=== PATIENT | male | born 2000 | race Caucasian/White ===

== ENCOUNTER 2022-03-22 08:59 | Emergency (ER) | payer OTHER ==
[2022-03-22 09:23] VITALS: BP 121/77; PULSE 76; RESP 18; TEMP 98.3
--- NOTE | 2022-03-22 09:59 | ED ---
Psych HPI - General Chief Complaint: Psychiatric Symptoms Stated Complaint: mental health Time Seen by Provider: 03/22/22 09:16 Source: patient, RN notes reviewed Mode of arrival: ambulatory Limitations: no limitations - History of Present Illness Initial Comments: 21-year-old male presents emergency Department for evaluation for psychiatric issues. Patient states that he started having increasing depression, anxiety issues after an event last night. Patient states he has a history of cutting states he thought about cutting herself but states he had no intention. Patient does currently see a therapist was on medications in the past but does not take any current medications. Patient states police showed up at his house today stating that someone called concern for his well-being. Patient is brought here for evaluation. Patient denies any drug or alcohol use - Related Data Home Medications Medication Instructions Recorded Confirmed No Known Home Medications 03/22/22 03/22/22 Allergies Allergy/AdvReac Type Severity Reaction Status Date / Time No Known Allergies Allergy Verified 03/22/22 10:56 Review of Systems ROS Statement: Those systems with pertinent positive or pertinent negative responses have been documented in the HPI. ROS Other: All systems not noted in ROS Statement are negative. Past Medical History Past Medical History: No Reported History Past Surgical History: Orthopedic Surgery Past Psychological History: Anxiety, Depression Smoking Status: Vaper Past Alcohol Use History: Occasional Past Drug Use History: Marijuana General Exam Limitations: no limitations General appearance: alert, in no apparent distress Head exam: Present: atraumatic, normocephalic, normal inspection Eye exam: Present: normal appearance, PERRL, EOMI. Absent: scleral icterus, conjunctival injection, periorbital swelling ENT exam: Present: normal exam, normal oropharynx, mucous membranes moist Neck exam: Present: normal inspection. Absent: tenderness, meningismus, lymphadenopathy Respiratory exam: Present: normal lung sounds bilaterally. Absent: respiratory distress, wheezes, rales, rhonchi, stridor Cardiovascular Exam: Present: regular rate, normal rhythm, normal heart sounds. Absent: systolic murmur, diastolic murmur, rubs, gallop, clicks Course Vital Signs 03/22/22 09:17 Temperature 98.3 F Pulse Rate 76 Respiratory 18 Rate Blood Pressure 121/77 O2 Sat by Pulse 98 Oximetry Medical Decision Making - Lab Data Lab Results 03/22/22 Range/Units 11:15 Urine Opiates Screen Not Detected (NotDetected) Ur Oxycodone Screen Not Detected (NotDetected) Urine Methadone Screen Not Detected (NotDetected) Ur Propoxyphene Screen Not Detected (NotDetected) Ur Barbiturates Screen Not Detected (NotDetected) U Tricyclic Antidepress Not Detected (NotDetected) Ur Phencyclidine Scrn Not Detected (NotDetected) Ur Amphetamines Screen Not Detected (NotDetected) U Methamphetamines Scrn Not Detected (NotDetected) U Benzodiazepines Scrn Not Detected (NotDetected) Urine Cocaine Screen Not Detected (NotDetected) U Marijuana (THC) Screen Detected H (NotDetected) Disposition Clinical Impression: Depression, Acute anxiety Disposition: Left Against Medical Advice Referrals: Yoav Jo MD [Primary Care Provider] - 1-2 days
[2022-03-22 11:58] LABS: Amphetamine Screen,Urine Not Detected (NotDetected); Barbiturate Screen,Urine Not Detected (NotDetected); Benzodiazepines Screen,Urine Not Detected (NotDetected); Cocaine Screen,Urine Not Detected (NotDetected); Methadone Screen, Urine Not Detected (NotDetected); Opiate Screen,Urine Not Detected (NotDetected); Oxycodone Screen, Urine Not Detected (NotDetected); Phencyclidine Screen,Urine Not Detected (NotDetected); Tricyclic Antidepressant,Urine Not Detected (NotDetected); Urn Cannabinoid Scrn Detected (NotDetected)
== END 2022-03-22 16:32 | disposition left against medical advice (07) ==
LOC: EC 08:59
DX: F32.A Depression, unspecified (principal); F41.9 Anxiety disorder, unspecified; F17.290 Nicotine dependence, other tobacco product, uncomplicated; F12.90 Cannabis use, unspecified, uncomplicated
CPT/HCPCS: 80306; 82075; 99284

== ENCOUNTER 2023-02-10 15:00 | Emergency (ER) | payer OTHER ==
[2023-02-10 15:41] VITALS: RESP 18; TEMP 98.4
[2023-02-10] MEDS ORDERED: DIPH,PERTUS(ACELL)TETVAC-LF 0.5 ML VIAL IM ONE (15:55)
[2023-02-10] MEDS ORDERED: LIDOCAINE 1% INJ 10MG/ML (30 ML VIAL-PF) SQ ONE (15:55)
--- NOTE | 2023-02-10 17:21 | ED ---
General Adult HPI - General Chief complaint: Wound/Laceration Stated complaint: [facility] L thumb laceration Time Seen by Provider: 02/10/23 15:47 Source: patient, RN notes reviewed Mode of arrival: ambulatory Limitations: no limitations - History of Present Illness Initial comments: 22-year-old -[place] male with no significant past medical history pr esents the emergency department with a chief complaint of left thumb laceration. Patient reports that he was attempting to put his knife back in his pocket when he slipped and cut his left thumb. He denies any numbness, tingling, weakness to the extremity. He is unsure when his last tetanus vaccination was. Denies any anticoagulant use - Related Data Home Medications Medication Instructions Recorded Confirmed No Known Home Medications 03/22/22 03/22/22 Allergies Allergy/AdvReac Type Severity Reaction Status Date / Time No Known Allergies Allergy Verified 02/10/23 15:41 Review of Systems ROS Statement: Those systems with pertinent positive or pertinent negative responses have been documented in the HPI. ROS Other: All systems not noted in ROS Statement are negative. Past Medical History Past Medical History: No Reported History Past Surgical History: Orthopedic Surgery Past Psychological History: Anxiety, Depression Smoking Status: Vaper Past Alcohol Use History: Occasional Past Drug Use History: Marijuana General Exam Limitations: no limitations General appearance: alert, in no apparent distress Head exam: Present: atraumatic, normocephalic, normal inspection Eye exam: Present: normal appearance, PERRL, EOMI. Absent: scleral icterus, conjunctival injection, periorbital swelling ENT exam: Present: normal exam, mucous membranes moist Neck exam: Present: normal inspection. Absent: tenderness, meningismus, lymphadenopathy Respiratory exam: Present: normal lung sounds bilaterally. Absent: respiratory distress, wheezes, rales, rhonchi, stridor Cardiovascular Exam: Present: regular rate, normal rhythm, normal heart sounds. Absent: systolic murmur, diastolic murmur, rubs, gallop, clicks GI/Abdominal exam: Present: soft, normal bowel sounds. Absent: distended, tenderness, guarding, rebound, rigid Extremities exam: Present: normal inspection, full ROM, normal capillary refill. Absent: tenderness, pedal edema, joint swelling, calf tenderness Left Hand L/R Front: 1 - laceration (1 cm laceration to left thumb with mild active bleeding at this noted full range of motion 2+ radial pulses distal NVI intact) Back exam: Present: normal inspection Neurological exam: Present: alert, oriented X3, CN II-XII intact Psychiatric exam: Present: normal affect, normal mood Skin exam: Present: warm, dry, intact, normal color. Absent: rash Course Vital Signs 02/10/23 02/10/23 15:36 18:08 Temperature 98.4 F 98.4 F Pulse Rate 63 67 Respiratory 18 18 Rate Blood Pressure 113/72 120/76 O2 Sat by Pulse 100 100 Oximetry Procedures - Laceration Laceration #1 Consent Obtained: verbal consent Indication: laceration Site: other (L thumb) Size (cm): 1 Description: linear Depth: simple, single layer Anesthetic Used: lidocaine 1% Anesthesia Technique: local infiltration, nerve block Pre-repair: wound explored, irrigated extensively Type of Sutures: vicryl Size of Sutures: 5-0 Number of Sutures: 2 Complications: pain, bleeding, nerve injury Patient Tolerated Procedure: well, no complications Medical Decision Making - Medical Decision Making Was pt. sent in by a medical professional or institution (TEODORA Zavaleta, [employer], urgent care, hospital, or custodial...) When possible be specific @ -[No] Did you speak to anyone other than the patient for history (EMS, parent, family, police, friend...)? What history was obtained from this source @ -[No] Did you review nursing and triage notes (agree or disagree)? Why? @ -[I reviewed and agree with nursing and triage notes] Were old charts reviewed (outside hosp., previous admission, EMS record, old EKG, old radiological studies, urgent care reports/EKG's, custodial records)? Report findings @ -[No old charts were reviewed] Differential Diagnosis (chest pain, altered mental status, abdominal pain women, abdominal pain men, vaginal bleeding, weakness, fever, dyspnea, syncope, headache, dizziness, GI bleed, back pain, seizure, CVA, palpatations, mental health, musculoskeletal)? @ -[not applicable] EKG interpreted by me (3pts min.). @ -[As above] X-rays interpreted by me (1pt min.). @ -[None done] CT interpreted by me (1pt min.). @ -[None done] U/S interpreted by me (1pt. min.). @ -[None done] What testing was considered but not performed or refused? (CT, X-rays, U/S, labs)? Why? @ -[None] What meds were considered but not given or refused? Why? @ -[None] Did you discuss the management of the patient with other professionals (professionals i.e. , PA, [employer], lab, RT, psych nurse, case management social worker, state assessed properties director, teacher, parole hearing officer, case management social worker)? Give summary @ -[No] Was smoking cessation discussed for >3mins.? @ -[No] Was critical care preformed (if so, how long)? @ -[No] Were there social determinants of health that impacted care today? How? (Homelessness, low income, unemployed, alcoholism, drug addiction, transportation, low edu. Level, literacy, decrease access to med. care, shelter, rehab)? @ -[No] Was there de-escalation of care discussed even if they declined (Discuss DNR or withdrawal of care, Hospice)? DNR status @ -[No] What co-morbidities impacted this encounter? (DM, HTN, Smoking, COPD, CAD, Cancer, CVA, ARF, Chemo, Hep., AIDS, mental health diagnosis, sleep apnea, morbid obesity)? @ -[None] Was patient admitted / discharged? Hospital course, mention meds given and route, prescriptions, significant lab abnormalities, going to OR and other pertinent info. @ -Discharged. This is a 22 year-old male who presents to the emergency department with laceration. patient had a thorough history and physical exam performed while in the ED. Physical exam is essentially unremar kable heart rate regular rate and rhythm lungs clear to auscultation bilaterally, abdomen soft nontender. L thumb with 1cm. patient had 2 sutures placed without difficulty. . Patient was seen and evaluated by EPS to does not believe the patient meets inpatient criteria. Patient to be discharge at this time. Return precautions were discussed. Patient discharged in stable condition. Case discussed with Myesha Reynoso who agrees with plan of care Undiagnosed new problem with uncertain prognosis? @ -[No] Drug Therapy requiring intensive monitoring for toxicity (Heparin, Nitro, Insulin, Cardizem)? @ -[No] Were any procedures done? @ -[No] Diagnosis/symptom? @ -laceration to left thumb Acute, or Chronic, or Acute on Chronic? @ -acute Uncomplicated (without systemic symptoms) or Complicated (systemic symptoms)? @ -uncomplicated Side effects of treatment? @ -[No] Exacerbation, Progression, or Severe Exacerbation? @ -[No] Poses a threat to life or bodily function? How? (Chest pain, [place], [place], pneumonia, PE, COPD, DKA, ARF, appy, cholecystitis, CVA, Diverticulitis, Homicidal, Suicidal, threat to staff... and all critical care pts) @ -low likelihood Disposition Clinical Impression: Laceration Disposition: HOME SELF-CARE Condition: Stable Instructions (If sedation given, give patient instructions): Care For Your Stitches (DC), Laceration (ED) Additional Instructions: Please return to the nearest emergency department if symptoms worsen or persist Is patient prescribed a controlled substance at d/c from ED?: No Referrals: Yoav Jo MD [Primary Care Provider] - 1-2 days Time of Disposition: 18:03
[2023-02-10 18:09] VITALS: BP 120/76; PULSE 67
== END 2023-02-10 18:10 | disposition home or self-care (01) ==
LOC: EC 15:00
DX: S61.012A Laceration without foreign body of left thumb without damage to nail, initial encounter (principal); F41.9 Anxiety disorder, unspecified; F32.A Depression, unspecified; F17.290 Nicotine dependence, other tobacco product, uncomplicated; F12.90 Cannabis use, unspecified, uncomplicated; Z23 Encounter for immunization; W26.0XXA Contact with knife, initial encounter
CPT/HCPCS: 90715; 99282; 90471; 12001; J2001

== ENCOUNTER → 2023-12-29 | Outpatient (CLI) | payer OTHER ==
--- NOTE | 2023-12-30 08:55 | XR ---
EXAMINATION TYPE: XR hand complete LT, XR wrist complete LT DATE OF EXAM: 12/29/2023 4:28 PM CLINICAL INDICATION:Male, 23 years old with history of S63.502A UNSPECIFIED SPRAIN OF LEFT WRIST, INI TIAL; [facility] COMPARISON: None TECHNIQUE: XR hand complete LT, XR wrist complete LT Frontal, lateral and oblique views were obtained . FINDINGS: Normal alignment of the visualized joints. No acute osseous pathology is identified. No e vidence of soft tissue swelling. IMPRESSION: No acute osseous pathology.
== END | disposition home or self-care (01) ==
LOC: RADXRMAIN 16:01
PROVIDERS: ATTEND Emergency Medicine
DX: S63.502A Unspecified sprain of left wrist, initial encounter (principal); S63.8X2A Sprain of other part of left wrist and hand, initial encounter

== ENCOUNTER → 2024-02-29 | Outpatient (CLI) | payer OTHER ==
--- NOTE | 2024-03-04 22:25 | MR ---
EXAM: MR wrist LT wo con DATE OF EXAM: 02/29/2024 COMPARISON: Left wrist radiograph 12/29/2023 HISTORY: Left wrist pain and limited movement, work lifting injury TECHNIQUE: Multiplanar, multisequence images of the left wrist were acquired without contrast. FINDINGS: BONES/JOINTS: Normal bone marrow signal. Negative ulnar variance. Trace amount of fluid within the di stal radioulnar joint. LIGAMENTS: Scapholunate and lunotriquetral ligaments are normal. Extrinsic carpal ligaments are dallin l. Limited evaluation of the triangular fibrocartilaginous complex without the use of intra-articular contrast. However, given these limitations, there is apparent discontinuity involving the dorsal rad ioulnar ligamentous complex of the TFCC.. TENDONS: Flexor tendons are normal. Extensor tendons are normal. SOFT TISSUES: Carpal tunnel is normal. Guyon's canal is normal. No bursal distention. No fluid collec tion. NEUROVASCULAR: The median nerve is normal in size, signal, and location. The ulnar nerve is normal in size, signal, and location. Vascular structures are normal OTHER: Small amount of nonspecific edema/inflammation within the fat pad along the deep/ulnar aspect of the radial neurovascular bundle, and adjacent to the flexor carpi radialis tendon. IMPRESSION: 1. High suspicion for TFCC injury involving the dorsal radioulnar ligament, trace associated effusion in the DRUJ. Correlate with symptomatology to determine need for additional imaging in the form of w rist MRI arthrogram. 2. Negative ulnar variance. 3. Small amount of nonspecific edema/inflammation in the fat pad along the deep aspect of the radial neurovascular bundle. This could relate to contusive change and/or extrinsic ligamentous injury.
== END | disposition home or self-care (01) ==
LOC: RADMRIMAIN 17:36
PROVIDERS: ATTEND Orthopaedic Surgery Hand Surgery
DX: M25.532 Pain in left wrist (principal); R60.0 Localized edema

== ENCOUNTER 2024-03-14 07:54 | Day surgery (SDC) | payer OTHER ==
--- NOTE | 2024-03-12 19:44 | P.HPOR ---
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 He had immediate pain and swelling. He was seen at [facility] where x-rays were taken and he was placed in a thumb spica brace. He was placed in a cast last visit due to not tolerating the brace. He states he still has continued pain, swelling and some intermittent numbness and tingling along the radial aspect of the wrist. He's been off of work since the injury. He is very distraught and not able to move any of the fingers or wrist due to pain. He still describes most of his pain and symptoms are localized to the base of the thumb/ radial wrist. Physical Examination: LUE: AIN/PIN/Radial/Ulnar/Median motor intact. Radial/Ulnar/Median SILT. 2+/4 Radial/Ulnar pulses palpated. 5/5 APB, 5/5 FDI. Positive Finkelsteins, negative CMC grind, negative Durkan's compression. Swelling present over first dorsal compartment. Patient remains hypersensitive and is unable to move any of his fingers without extreme pain limiting remainder of exam. No signs of erythema, warmth or compartment syndrome. When I try to move any of the patients fingers he jolt's in pain. NTTP over ulnar soft spot. MRI: MRI of the left wrist without contrast on 02/29/24 demonstrates traumatic tear of APL off of the thumb metacarpal insertion. there is also questionable concern for possible dorsal distal radial ulnar joint ligament injury. Impression: 1.) Left hand abductor pollicis longus traumatic tendon rupture/tear. Plan: Diagnosis and treatment options were discussed with the patient. Despite being 2 months out from his injury he still remains very symptomatic, tender, and hypers ensitive over the first dorsal compartment and now the hand globally with limited movement of all digits. He is very emotionally distraught and in tears in office stating he does not have any sign of reliable income source currently since being off of work and his symptoms feel the same way and slightly worse than the day of his injury. We discussed MRI findings, if he has a complete or partial tear of his APL tendon we discussed this could be repaired however his DRUJ seems to be stable on exam although his exam is now limited due to pain. We discussed continued conservative treatment vs operative exploration with possible abductor pollicis longus tear repair. While under anesthesia we also discussed the stability of his DRUJ will be assessed. Overall we discussed his symptoms are not straightforward and he is presenting with pain that seems out of proportion to MRI findings. We will start therapy after surgical exploration depending on what is discovered and repaired. The patient was agreeable with this plan. Risks and benefits of surgery including bleeding, infection, damage to surrounding tissue, need for further surgery, residual numbness were discussed and the patient wished to go forward with surgery. He is to remain off work until his next visit. -Maico Parrish DO Orthopedic Hand/Upper Extremity Surgeon Past Medical History Past Medical History: Asthma, GERD/Reflux History of Any Multi-Drug Resistant Organisms: None Reported Past Surgical History: Orthopedic Surgery Additional Past Surgical History / Comment(s): L/R foot bone removed Past Anesthesia/Blood Transfusion Reactions: No Reported Reaction Smoking Status: Current some day smoker, Vaper - Past Family History Mother Family Medical History: No Reported History Father History Unknown: Yes Medications and Allergies Home Medications Medication Instructions Recorded Confirmed Type Ibuprofen [Motrin Ib] 200 mg PO Q8H PRN 03/08/24 03/08/24 History Allergies Allergy/AdvReac Type Severity Reaction Status Date / Time No Known Allergies Allergy Verified 03/08/24 14:29 Physical Examination Osteopathic Statement: *. No significant issues noted on an osteopathic structural exam other than those noted in the History and Physical/Consult.
[~2024-03-14 07:54] MED LIST: HYDROmorphone 0.5 MG/0.5 ML SYRINGE IVP PRN; LIDOCAINE 1% (10MG/ML) FOR IV START INTRADERMA PRN; METOCLOPRAMIDE 5 MG/ML 2 ML VIAL IVP PRN; MIDAZOLAM 2 MG/2 ML VIAL IV PRN; Pre Op ABX Message 1 EACH MISC MISCELLANE ONE; fentaNYL (PF) 50 MCG/ML 2 ML AMP IV PRN
[2024-03-14] MEDS: LACTATED RINGERS 1,000 ML IV SCH (08:50)
[2024-03-14] MEDS: ONDANSETRON 4 MG/2 ML VIAL IVP ONE (08:51)
[2024-03-14] MEDS: DEXAMETHASONE SOD PHOSPHATE 4 MG/ML 1 ML VIAL IV ONE (08:51)
[2024-03-14] MEDS ORDERED: MIDAZOLAM 2 MG/2 ML VIAL ONE (09:14)
[2024-03-14] MEDS ORDERED: KETAMINE HCL IN 0.9 % NACL 50 MG/5 ML SYRINGE ONE (09:14)
[2024-03-14] MEDS ORDERED: PROPOFOL 10 MG/ML 20 ML VIAL IV ONE (09:14)
[2024-03-14] MEDS ORDERED: KETOROLAC 15 MG/ML 1 ML VIAL ONE (09:14)
[2024-03-14] MEDS ORDERED: THROMBIN (BOVINE) 5,000 UNIT VIAL ONE (09:14)
[2024-03-14] MEDS ORDERED: fentaNYL (PF) 50 MCG/ML 2 ML AMP ONE (09:14)
[2024-03-14] MEDS ORDERED: GLYCOPYRROLATE 0.2 MG/ML 2 ML VIAL ONE (09:14)
[2024-03-14] MEDS: BUPIVACAINE (PF) 0.5% 30 ML VIAL SQ ONE ×2 (09:35→09:56)
[2024-03-14] MEDS: LIDOCAINE 2% (PF) 20 MG/ML 5 ML VIAL SQ ONE ×2 (09:36→09:56)
[2024-03-14 10:47] VITALS: TEMP 96.8
[2024-03-14 11:41] VITALS: RESP 16
[2024-03-14 12:38] VITALS: BP 131/70; PULSE 61
--- NOTE | 2024-03-14 17:45 | P.OP ---
Date of Procedure: 03/14/24 Preoperative Diagnosis: 1.) Left DeQuervains tenosynovitis Postoperative Diagnosis: 1.) Left DeQuervains tenosynovitis Procedure(s) Performed: 1.) Left first dorsal compartment release Anesthesia: AMARA Surgeon: Maico Parrish Estimated Blood Loss (ml): 0 Pathology: none sent Condition: stable Disposition: PACU Description of Procedure: This is a 23 year old male who presents today for a left first dorsal compartment release after having failed conservative treatment. Risks and b enefits of surgery were discussed with the patient including bleeding, damage to surrounding tissue, infection, need for further surgery as well as risks of anesthesia including pulmonary embolism and even and the patient wished to proceed with surgical intervention. The patients was seen in the pre-operative area by myself. Consent and H&P were completed and updated. The correct extremity was marked in the pre-operative area by myself and all other questions were answered. Operative Narrative: The patient was brought to the operating room by the department of anesthesia. They remained on the portable stretcher and a rolling hand table was brought to the side of the operative extremity. The patient was then drifted off to sleep by the department of anesthesia. A nonsterile tourniquet was then applied to the operative extremity and the left upper extremity was then prepped and draped in normal sterile fashion. Pre-operative time out was performed indic ating the correct patient, procedure and laterality. All in the room agreed. Pre-operative antibiotics were given prior to skin incision. The operative extremity was the exsanguinated with an esmarch bandage and the tourniquet was inflated to 250mmHg. 15 blade scalpel was used to make a longitudinal skin incision centered over the first dorsal compartment of the left wrist. Blunt dissection was taken down to the proximal edge of the first dorsal compartment while taking care to identify and protect branches of the superficial radial sensory nerve. The first dorsal compartment was released in its entirety from proximal to distal. APL and EPB tendons were identified and there was some minor fraying of the most volar slip of the APL tendon at it's insertion at the base of the thumb but without any obvious tear or rupture of the tendon. Skin closure was performed with 4-0 Monocryl suture and steri strips. A 50:50 mixture of 1% Lidocaine and 0.5% bupivacaine was injected into the subcutaneous tissues of the radial wrist skin, 10ccs total. Sterile soft dressing was applied consisting of 4x4's cast padding and an pal wrap. The patient was then woken by the department of anesthesia and transferred to PACU in stable condition. Maico Parrish D.O. Orthopedic Hand/Upper Extremity Surgeon
== END 2024-03-14 12:12 | disposition home or self-care (01) ==
LOC: OR 07:54
PROVIDERS: ATTEND Orthopaedic Surgery Hand Surgery
DX: M65.4 Radial styloid tenosynovitis [de Quervain] (principal); K21.9 Gastro-esophageal reflux disease without esophagitis; J45.909 Unspecified asthma, uncomplicated; F17.200 Nicotine dependence, unspecified, uncomplicated; Z79.899 Other long term (current) drug therapy
CPT/HCPCS: 25000; J2250; J1100; J2405; J3010; J1885; J2704; J2001; J0665

== ENCOUNTER 2025-01-25 13:33 | Emergency (ER) | payer OTHER ==
--- NOTE | 2025-01-25 14:39 | ED ---
Anxiety HPI - General Chief Complaint: Anxiety Stated Complaint: anxiety Time Seen by Provider: 01/25/25 13:55 Source: patient, EMS, RN notes reviewed Mode of arrival: EMS Limitations: no limitations - History of Present Illness Initial Comments: This is a 24-year-old male who presents to the emergency department for possible anxiety. States that for the last 2 days he has felt very strange. States that he feels like his heart will stop and his legs are weak and his whole body is tingling. States that he feels like his anxiety is through the roof, but is unsure if it is related to anxiety or something else, as he does not have a history of panic attacks. However he does have a hx of anxiety and depression. He said that he wants to make sure there is nothing medical causing his symptoms. Denies any suicidal or homicidal ideations. MD Complaint: anxiety, heart racing - Related Data Home Medications: Home Medications Medication Instructions Recorded Confirmed Ibuprofen [Motrin Ib] 200 mg PO Q8H PRN 03/08/24 03/14/24 Previous Rx's Medication Instructions Recorded HYDROcodone/APAP 5-325MG [[place] 1 tab PO Q4HR PRN 3 Days #18 tab 03/14/24 5-325] Allergies/Adverse Reactions: Allergies Allergy/AdvReac Type Severity Reaction Status Date / Time No Known Allergies Allergy Verified 01/25/25 13:53 Review of Systems ROS Statement: Those systems with pertinent positive or pertinent negative responses have been documented in the HPI. ROS Other: All systems not noted in ROS Statement are negative. Past Medical History Past Medical History: Asthma, GERD/Reflux History of Any Multi-Drug Resistant Organisms: None Reported Past Surgical History: Orthopedic Surgery Additional Past Surgical History / Comment(s): L/R foot bone removed Past Anesthesia/Blood Transfusion Reactions: No Reported Reaction Past Psychological History: Anxiety, Depression Smoking Status: Current some day smoker, Vaper - Past Family History Mother Family Medical History: No Reported History Father History Unknown: Yes General Exam Limitations: no limitations General appearance: alert, in no apparent distress Head exam: Present: atraumatic, normocephalic, normal inspection Respiratory exam: Present: normal lung sounds bilaterally. Absent: respiratory distress, wheezes, rales, rhonchi, stridor Cardiovascular Exam: Present: regular rate, normal rhythm Neurological exam: Present: alert, oriented X3, CN II-XII intact Psychiatric exam: Present: normal affect, normal mood Skin exam: Present: warm, dry, intact, normal color. Absent: rash Course Vital Signs 01/25/25 01/25/25 13:50 16:57 Temperature 97.9 F 98.1 F Pulse Rate 55 L 68 Respiratory 16 19 Rate Blood Pressure 143/86 142/88 O2 Sat by Pulse 100 98 Oximetry Medical Decision Making - Medical Decision Making This is a 24 year old male who presents to the emergency department for possible anxiety. Was pt. sent in by a medical professional or institution? @ -No Did you speak to anyone other than the patient for history? @ -No Did you review nursing and triage notes? @ -Yes, and I agree, it is accurate with regards to the patient's symptoms. Were old charts reviewed? @ -No Differential Diagnosis? @ -Panic attack, hyperthyroidism, PE, electrolyte abnormality, this is not meant to be an all-inclusive list. EKG interpreted by me (3pts min.)? @ -EKG interpreted by me demonstrating the following: Sinus bradycardia. 57 bpm, MI interval 161 ms, QRS duration 98 ms, QTc 390 ms. X-rays interpreted by me (1pt min.)? @ -Chest x-ray obtained, my interpretation identifies no localized consolidations or infiltrates. CT interpreted by me (1pt min.)? @ -Not obtained U/S interpreted by me (1pt. min.)? @ -Not obtained What testing was considered but not performed? (CT, X-rays, U/S, labs)? Why? @ -None What meds were considered but not given? Why? @ -None Did you discuss the management of the patient with other professionals? @ -No Did you reconcile home meds? @ -No Was smoking cessation discussed for >3mins.? @ -No Was critical care preformed (if so, how long)? @ -No Were there social determinants of health that impacted care today? How? (Homelessness, low income, unemployed, alcoholism, drug addiction, transportation, low edu. Level, literacy, decrease access to med. care, [facility], rehab)? @ -No Was there de-escalation of care discussed even if they declined? (Discuss DNR or withdrawal of care, Hospice)? @ -No What co-morbidities impacted this encounter? (DM, HTN, Smoking, COPD, CAD, Cancer, CVA, Hep., AIDS, mental health diagnosis, sleep apnea, morbid obesity)? @ -Anxiety, depression Was patient admitted / discharged? @ -Discharged. Lab work unremarkable. Chest x-ray reveals no acute process. He was given Ativan with some improvement in symptoms. Discussed with the patient that at this point there is nothing else pointing to his symptoms. We discussed the possibility that it could be related to anxiety. However, advised that he does need to follow-up with a primary care provider for reevaluation. Information for local primary care providers was provided. Advised to become established for ongoing care. Patient discharged home in stable condition. Case discussed with ED attending Dr. Jason. Return precautions reviewed in depth, the patient is instructed to return to the emergency department with any new, worsening, or concerning symptoms. Patient verbalized understanding. Undiagnosed new problem with uncertain prognosis? @ -None Drug Therapy requiring intensive monitoring for toxicity (Heparin, Nitro, Insulin, Cardizem)? @ -None Were any procedures done? @ -None Diagnosis/symptom? @ -Does not feel right, panic attack Acute, or Chronic, or Acute on Chronic? @ -Acute Uncomplicated (without systemic symptoms) or Complicated (systemic symptoms)? @ -Uncomplicated Side effects of treatment? @ -None Exacerbation, Progression, or Severe Exacerbation] @ -Not applicable Poses a threat to life or bodily function? @ -No - Lab Data Result diagrams: 01/25/25 15:33 01/25/25 15:33 Lab Results 01/25/25 01/25/25 01/25/25 Range/Units 15:33 15:33 15:33 WBC 5.38 (4.50-10.00) 10*3/uL RBC 5.23 (4.40-5.60) 10*6/uL Hgb 14.7 (13.0-17.0) g/dL Hct 42.8 (39.6-50.0) % MCV 81.8 (80.0-97.0) fL MCH 28.1 (27.0-32.0) pg MCHC 34.3 (32.0-37.0) g/dL Plt Count 222 (140-440) 10*3/uL MPV 8.8 L (9.5-12.2) fL Immature Gran % (Auto) 0.2 % Neutrophils % 51.1 % Lymphocytes % 37.5 % Monocytes % 7.6 % Eosinophils % 3.0 % Basophils % 0.6 % Immature Gran # 0.01 (0.00-0.04) 10*3/uL Neutrophils # 2.75 (1.80-7.70) 10*3/uL Lymphocytes # 2.02 (0.90-5.00) 10*3/uL Monocytes # 0.41 (0.20-1.00) 10*3/uL Eosinophils # 0.16 (0.04-0.35) 10*3/uL Basophils # 0.03 (0.00-0.10) 10*3/uL D-Dimer <0.17 (<0.60) mg/L FEU Sodium 137 (137-145) mmol/L Potassium 4.3 (3.5-5.1) mmol/L Chloride 105 (98-107) mmol/L Carbon Dioxide 27 (22-30) mmol/L Anion Gap 5 mmol/L BUN 12 (9-20) mg/dL Creatinine 0.74 (0.66-1.25) mg/dL Est GFR (CKD-EPI)AfAm >90 (>60 ml/min/1.73 sqM) Est GFR (CKD-EPI)NonAf >90 (>60 ml/min/1.73 sqM) Glucose 103 H (74-99) mg/dL Calcium 9.5 (8.4-10.2) mg/dL Magnesium 1.9 (1.6-2.3) mg/dL Total Bilirubin 1.2 (0.2-1.3) mg/dL AST 31 (17-59) U/L ALT 51 H (4-49) U/L Alkaline Phosphatase 53 (38-126) U/L Troponin I (0.000-0.034) ng/mL Total Protein 6.9 (6.3-8.2) g/dL Albumin 4.4 (3.5-5.0) g/dL TSH 0.786 (0.465-4.680) mIU/L 01/25/25 Range/Units 15:33 WBC (4.50-10.00) 10*3/uL RBC (4.40-5.60) 10*6/uL Hgb (13.0-17.0) g/dL Hct (39.6-50.0) % MCV (80.0-97.0) fL MCH (27.0-32.0) pg MCHC (32.0-37.0) g/dL Plt Count (140-440) 10*3/uL MPV (9.5-12.2) fL Immature Gran % (Auto) % Neutrophils % % Lymphocytes % % Monocytes % % Eosinophils % % Basophils % % Immature Gran # (0.00-0.04) 10*3/uL Neutrophils # (1.80-7.70) 10*3/uL Lymphocytes # (0.90-5.00) 10*3/uL Monocytes # (0.20-1.00) 10*3/uL Eosinophils # (0.04-0.35) 10*3/uL Basophils # (0.00-0.10) 10*3/uL D-Dimer (<0.60) mg/L FEU Sodium (137-145) mmol/L Potassium (3.5-5.1) mmol/L Chloride (98-107) mmol/L Carbon Dioxide (22-30) mmol/L Anion Gap mmol/L BUN (9-20) mg/dL Creatinine (0.66-1.25) mg/dL Est GFR (CKD-EPI)AfAm (>60 ml/min/1.73 sqM) Est GFR (CKD-EPI)NonAf (>60 ml/min/1.73 sqM) Glucose (74-99) mg/dL Calcium (8.4-10.2) mg/dL Magnesium (1.6-2.3) mg/dL Total Bilirubin (0.2-1.3) mg/dL AST (17-59) U/L ALT (4-49) U/L Alkaline Phosphatase (38-126) U/L Troponin I <0.012 (0.000-0.034) ng/mL Total Protein (6.3-8.2) g/dL Albumin (3.5-5.0) g/dL TSH (0.465-4.680) mIU/L - Radiology Data Radiology results: report reviewed, image reviewed Disposition Clinical Impression: Acute anxiety, Does not feel right Disposition: HOME SELF-CARE Instructions (If sedation given, give patient instructions): Generalized Anxiety Disorder (ED) Additional Instructions: Return to the emergency department with any new, worsening, or concerning symptoms. Try to become established with a primary care provider for ongoing medical care. Is patient prescribed a controlled substance at d/c from ED?: No Referrals: None,Stated [Primary Care Provider] - 1-2 days Forms: Area PCPs Time of Disposition: 16:41
--- NOTE | 2025-01-25 15:18 | XR ---
EXAMINATION TYPE: XR chest 2V DATE OF EXAM: 01/25/2025 2:51 PM COMPARISON: None. CLINICAL INDICATION: Male, 24 years old with history of Palpitations, TECHNIQUE: XR chest 2V view(s) obtained. FINDINGS: The heart size is normal. The pulmonary vasculature is normal. The lungs are clear. IMPRESSION: 1. No acute pulmonary process. [facility], , 01/25/2025 3:16 PM
[2025-01-25 15:40] LABS: Basophils # (A) 0.03 10*3/uL (0.00-0.10); Basophils % (A) 0.6 %; Eosinophils # (A) 0.16 10*3/uL (0.04-0.35); HCT 42.8 % (39.6-50.0); HGB 14.7 g/dL (13.0-17.0); Lymphocytes # (A) 2.02 10*3/uL (0.90-5.00); Lymphocytes % (A) 37.5 %; MCH 28.1 pg (27.0-32.0); MCHC 34.3 g/dL (32.0-37.0); MCV 81.8 fL (80.0-97.0); Mean Platelet Volume 8.8 fL (9.5-12.2); Monocytes # (A) 0.41 10*3/uL (0.20-1.00); Monocytes % (A) 7.6 %; Neutrophils # (A) 2.75 10*3/uL (1.80-7.70); Neutrophils % (A) 51.1 %; Platelet Count 222 10*3/uL (140-440); RBC 5.23 10*6/uL (4.40-5.60); RDW 12.7 % (11.5-14.5); WBC 5.38 10*3/uL (4.50-10.00)
[2025-01-25] MEDS: SODIUM CHLORIDE 0.9% 1,000 ML IV ONE (15:48)
[2025-01-25] MEDS: LORazepam 2 MG/ML INJ IV STA (15:50)
[2025-01-25 16:03] LABS: ALT 51 U/L (4-49); AST 31 U/L (17-59); African American GFR (CKD) >90 (>60 ml/min/1.73 sqM); Albumin 4.4 g/dL (3.5-5.0); Alkaline Phosphatase 53 U/L (38-126); Anion Gap 5 mmol/L; Blood Urea Nitrogen 12 mg/dL (9-20); Calcium 9.5 mg/dL (8.4-10.2); Carbon Dioxide 27 mmol/L (22-30); Chloride 105 mmol/L (98-107); Glucose 103 mg/dL (74-99); Magnesium 1.9 mg/dL (1.6-2.3); Non-African American GFR(CKD) >90 (>60 ml/min/1.73 sqM); Potassium 4.3 mmol/L (3.5-5.1); Sodium 137 mmol/L (137-145); Total Bilirubin 1.2 mg/dL (0.2-1.3); Total Protein 6.9 g/dL (6.3-8.2)
[2025-01-25 17:00] VITALS: BP 142/88; PULSE 68; RESP 19; TEMP 98.1
== END 2025-01-25 17:00 | disposition home or self-care (01) ==
LOC: EC 13:33
DX: F41.9 Anxiety disorder, unspecified (principal); F32.A Depression, unspecified; R00.1 Bradycardia, unspecified; F17.290 Nicotine dependence, other tobacco product, uncomplicated
CPT/HCPCS: 36415; 93005; 85379; 80053; 84443; 83735; 84484; 85025; 71046; 99284; 96374; 96361; J2060